=== PATIENT | female | born 1950 | race Caucasian/White ===

== ENCOUNTER 2016-10-13 13:55 | Emergency (ER) | payer MEDICARE, OTHER ==
[2016-10-13 11:50] LABS: BASOPHILS 0.4 %; BASOPHILS ABSOLUTE 0.04 10/3/uL (0.0-0.16); EOSINOPHILS 0.4 %; EOSINOPHILS ABSOLUTE 0.04 10/3/uL (0.0-0.53); ER CBC TAT 0 Hrs 05 Mins; HEMATOCRIT 35.5 % (36.0-48.0); HEMOGLOBIN 10.9 g/dL (12.0-16.0); IMMATURE GRANULOCYTES 0.2 %; IMMATURE GRANULOCYTES ABSOLUTE 0.02 10/3/uL (0.0-0.11); LYMPHOCYTES 33.9 %; LYMPHOCYTES ABSOLUTE 3.37 10/3/uL (0.67-4.30); MANUAL DIFF NO %; MEAN CORPUS HGB CONC 30.7 g/dL (32.0-36.0); MEAN CORPUSCULAR HEMOGLOB 26.4 pg (26.0-34.0); MEAN PLATELET VOLUME 10.1 fL (9.2-13.0); MONOCYTES 9.5 %; MONOCYTES ABSOLUTE 0.94 10/3/uL (0.21-1.20); NEUTROPHILS 55.6 %; NEUTROPHILS ABSOLUTE 5.52 10/3/uL (2.02-8.40); PLATELET COUNT 264 10/3/uL (150-400); RBC DISTRIBUTION WIDTH 16.9 % (12.0-16.0); RED CELL COUNT 4.13 10/6/uL (4.0-5.6); WHITE BLOOD CELLS 9.9 10/3/uL (4.5-10.5)
[2016-10-13 11:57] LABS: INTERNATIONAL NORMAL RATI 1.2 UNITS (-)
[2016-10-13 11:59] LABS: PROTIME (NOT ORD) 15.1 SEC (12.0-14.5)
[~2016-10-13 13:55] MED LIST: ALTA5 PO; ALTACE10 MG PO; ASA5GR PO; ASABAYER PO; BIOTIN5 MG PO; CELEXA20 PO; CO Q-10100 MG PO; COQ-1010 MG PO; COREG12 PO; COREG25 PO; FOLIC PO; GLUCOPHAGE1000 MG PO; GLUCOTROL5 PO; GLUCXL5 PO; IMDUR30 PO; LAM250 PO; LIPITOR40 PO; NITROSTAT0.4 MG SL; PCET PO; PENTAZOCINE PO; PLAVIX PO; PR25 PO; PREV15 PO; RAN500 PO; REQUIP2 PO; SEV VITAMINS PO; TOPAMAX200 MG PO; TRILIPIX135 MG PO; ZETIA PO; ZOL50 PO; [UNRECOGNIZED DRUG - CODE] PO; [UNRECOGNIZED DRUG - OTHER] PO
[2016-11-22] MEDS ORDERED: NEUR100 PO (13:23)
[2016-11-22] MEDS ORDERED: INTEGRA PLUS C1 EACH PO (13:24)
[2016-12-06] MEDS ORDERED: REQUIP25 PO (09:20)
[2016-12-06] MEDS ORDERED: [UNRECOGNIZED DRUG - CODE] PO (09:20)
[2016-12-06] MEDS ORDERED: IMDUR30 PO (09:21)
[2016-12-06] MEDS ORDERED: REQUIP2 PO (10:31)
== END 2016-10-13 14:25 | disposition home or self-care (01) ==
LOC: ER 13:55
PROVIDERS: Emergency Medicine
DX: L76.22 Postprocedural hemorrhage of skin and subcutaneous tissue following other procedure (principal); Y83.8 Other surgical procedures as the cause of abnormal reaction of the patient, or of later complication, without mention of misadventure at the time of the procedure
CPT/HCPCS: 85025; 85610; 99284

== ENCOUNTER 2016-11-23 08:13 | Day surgery (SDC) | payer MEDICARE, OTHER ==
--- NOTE | ~2016-11-23 | OP ---
Record Of Operation [facility] [address] [place]. [address] NAME: EDIS CERVANTES : 52 STATUS : [facility]#: [id number] AGE: 66 ADM/REG DATE : 11/23/16 MR#: [id number] REPORT SERV DATE: 11/24/16 DICTATED BY: TERESA NOLAND DATE: 11/24/16 REPORT STATUS : Draft TRANSCRIBED BY: MODDelfina DATE: 11/24/16 DATE OF PROCEDURE: 11/23/2016 PREOPERATIVE DIAGNOSIS: Critical limb ischemia, left lower extremity with ischemic rest pain with history of multiple failed endovascular and surgical revascularization procedures. POSTOPERATIVE DIAGNOSIS: Critical limb ischemia, left lower extremity with ischemic rest pain with history of multiple failed endovascular and surgical revascularization procedures. PROCEDURE: 1. Ultrasound-guided percutaneous access, right common femoral artery. 2. Abdominal aortogram. 3. Left leg arteriogram with catheter placement in the below-knee popliteal artery from the right femoral access. SURGEON: Teresa Noland M.D. ANESTHESIA: Local with MAC. ESTIMATED BLOOD LOSS: 5 mL. CONTRAST: 40 mL. IV FLUIDS: 300 mL. COMPLICATIONS: None. INDICATION: Ms Cervantes is a pleasant 66-year-old female, who has had multiple endovascular and surgical revascularization procedures to the left leg by another surgeon. She has had at least two failed bypass procedures in the left leg. She has been recommended for amputation. I was asked to give a second opinion, and as a result, she is brought for arteriogram today. DETAILS OF PROCEDURE: After informed consent was obtained, the patient was brought to the endovascular suite and placed in supine position. After administration of IV sedation, she was prepped and draped in the usual sterile fashion. A time-out was performed. I commenced the procedure with ultrasound-guided percutaneous access to the right common femoral artery. This was done after anesthetizing the right groin with local anesthetic. Permanent image of the artery documenting patency was saved and stored in the patient's chart. I accessed the micropuncture needle, passed a micropuncture wire, confirmed intra-arterial under fluoroscopy. I then upsized to a 5-Estonian sheath over a Bentson wire. I advanced the Bentson wire and [place] flush catheter into the abdominal aorta. The abdominal aortogram was performed which showed the infrarenal aorta to be patent. There was moderate to severe atherosclerotic disease, but no flow-limiting stenosis. Single renal arteries were patent bilaterally with no stenosis. Common iliacs were diseased bilaterally, but again have no flow limiting stenosis. Internal and external iliac arteries were patent bilaterally. Record Of Operation [facility] [address] [place]. [address] NAME: EDIS CERVANTES : 52 STATUS : [facility] PAT#: [id number] AGE: 66 ADM/REG DATE : 11/23/16 MR#: [id number] REPORT SERV DATE: 11/24/16 DICTATED BY: TERESA NOLAND DATE: 11/24/16 REPORT STATUS : Draft TRANSCRIBED BY: MODL DATE: 11/24/16 There are multiple stents in place in the left external iliac artery that extend into the left common femoral artery. These were patent with no stenosis. Next, I pulled the flush catheter down to the bifurcation and flexed it over the contralateral iliac with a Glidewire. I advanced the flush catheter over the bifurcation with the Glidewire. I then performed left leg arteriogram. This showed the common femoral and deep femoral arteries to be patent with no stenosis. The [place] SFA has stents that extend throughout the SFA all the way through the popliteal artery to the tibial plateau. These stents were obviously all occluded. There is evidence of at least two ring PTFE bypass grafts, both of which were occluded. There was a stent in one of the bypassed graft below the knee which is deformed and occluded. There is no reconstitution of any significant caliber tibial vessel distally although there are some collaterals that light up with contrast. After that, I replaced the Glidewire. We administered 3000 units of IV heparin. I exchanged a 511 sheath for a 545 sheath over the bifurcation. I was able to engage one of the bypass grafts and navigated the catheter all the way down to the distal anastomosis and was presumed to be the tibioperoneal trunk. Even advancing through this occluded bypass distally, I still could not get any significant caliber vessel below the knee that would even be plausible bypass target. Seeing no opportunity for meaningful intervention, wires and catheters were removed. Right femoral artery arteriogram was performed which showed the puncture site in the proximal common femoral artery. Exoseal closure device was deployed for hemostasis. The patient tolerated the procedure well with no complications. I was present for this entire case as dictated. Unfortunately, she does not appear to have any meaningful revascularization options for the left leg and her only option is now amputation. ARCENIO/TRINA Teresa Noland M.D. / [id number] CC: Gina Bunch M.D.
[~2016-11-23 08:13] MED LIST changes: +INTEGRA PLUS C1 EACH PO; +NEUR100 PO
[2016-12-06] MEDS ORDERED: REQUIP25 PO (09:20)
[2016-12-06] MEDS ORDERED: [UNRECOGNIZED DRUG - CODE] PO (09:20)
[2016-12-06] MEDS ORDERED: IMDUR30 PO (09:21)
[2016-12-06] MEDS ORDERED: REQUIP2 PO (10:31)
== END 2016-11-23 16:45 | disposition home or self-care (01) ==
LOC: SDC 08:13 → SSU1 14:35
DX: M62.262 Nontraumatic ischemic infarction of muscle, left lower leg (principal); I99.8 Other disorder of circulatory system; I25.10 Atherosclerotic heart disease of native coronary artery without angina pectoris; I10 Essential (primary) hypertension; E11.9 Type 2 diabetes mellitus without complications; I73.9 Peripheral vascular disease, unspecified; E78.5 Hyperlipidemia, unspecified; Z87.891 Personal history of nicotine dependence; Z88.2 Allergy status to sulfonamides; Z88.1 Allergy status to other antibiotic agents; Z79.82 Long term (current) use of aspirin; Z79.899 Other long term (current) drug therapy; Z95.1 Presence of aortocoronary bypass graft
CPT/HCPCS: 36247; 75625; 75710; 76937; 82962; A9270-GY; C1760; C1769; C1887; C1894; J1200; J1720; J2250; J3010; Q9966

== ENCOUNTER 2016-12-10 17:22 | Inpatient (IN) | payer MEDICARE, OTHER ==
--- NOTE | ~2016-12-10 | OP ---
Record Of Operation [facility] [address] [place]. [address] NAME: EDIS CERVANTES : 52 STATUS : DIS IN PAT#: [id number] AGE: 66 ADM/REG DATE : 12/10/16 MR#: [id number] REPORT SERV DATE: 12/25/16 DICTATED BY: BOOM VILLEGAS DATE: 12/24/16 REPORT STATUS : Draft TRANSCRIBED BY: TRINA DATE: 12/24/16 DATE OF PROCEDURE: 12/13/2016 PREPROCEDURE DIAGNOSIS: Gangrene of left foot, unreconstructable vascular disease. POSTOPERATIVE DIAGNOSIS: Gangrene of left foot, unreconstructable vascular disease. PROCEDURE PERFORMED: Left above knee amputation. SURGEON: Boom Villegas M.D. ANESTHESIA: General. COMPLICATIONS: None. INDICATION FOR PROCEDURE: Secondary to this very pleasant 66-year-old female who is status post multiple interventions for limb salvage, however, has no additional options for vascular reconstruction. Recommendations were made for observation, however, she failed observation and proceeded with rest pain and gangrene of the left foot. Recommendations were made for left above-knee amputation. Consent was given. DETAILS OF PROCEDURE: The patient was brought to the operating room, placed in supine position, prepped and draped in a routine sterile fashion with attention to the left leg. A curvilinear incision was then placed over the distal aspect of the left thigh and this incision then proceeded down through the skin and subcutaneous tissues with electrocautery, all the way to the femur. The femur was then encircled and then divided by Gigli saw. The posterior flap was then created. The neurovascular bundle was ligated and divided individually and then specimen was passed off the field. All areas of bleeding were then controlled with cautery and suture ligature. The bone was then rasped smooth. The entire wound was then cleansed with saline and then a myopexy was then performed with a six-point suture. This was performed x2. Next, the fascia was then closed with interrupted Vicryl stitch and the skin was then closed with jorge. Standard dressings were applied. The patient tolerated the procedure well. DAMIEN/TRINA Boom Villegas M.D. / [id number] CC: Gina Langley M.D.
--- NOTE | ~2016-12-10 | DS ---
Discharge Summary [facility] [address] [place]. [address] NAME: EDIS CERVANTES : 52 STATUS : DIS IN PAT#: [id number] AGE: 66 ADM/REG DATE : 12/10/16 MR#: [id number] REPORT SERV DATE: 03/08/17 DICTATED BY: BOOM VILLEGAS DATE: 03/04/17 REPORT STATUS : Draft TRANSCRIBED BY: MODL DATE: 03/04/17 ADMISSION DATE: 12/10/2016 DISCHARGE DATE: 12/17/2016 ADMITTING DIAGNOSIS: Was a left AKA. She was admitted to [facility] for gangrene of the left foot where Dr. Villegas amputated the left extremity above the knee. Suri were placed. Dressing was clean, dry, and intact. PLAN: For Ms. Cervantes is for her to follow up in 6 weeks to have the suri removed from her left AKA. We also have consulted home health to come out to the house to assist Ms. Cervantes with her ADLs. ELIZABETH/TRINA Concetta Arguello, TRIAL MGR Boom Villegas M.D. / [id number] CC: Gina Langley M.D.
[~2016-12-10 17:22] MED LIST changes: +REQUIP25 PO
[2016-12-10 17:27] LABS: BASOPHILS 0.5 %; BASOPHILS ABSOLUTE 0.06 10/3/uL (0.0-0.16); EOSINOPHILS 4.3 %; EOSINOPHILS ABSOLUTE 0.47 10/3/uL (0.0-0.53); HEMATOCRIT 37.9 % (36.0-48.0); IMMATURE GRANULOCYTES 0.4 %; IMMATURE GRANULOCYTES ABSOLUTE 0.04 10/3/uL (0.0-0.11); LYMPHOCYTES 21.4 %; LYMPHOCYTES ABSOLUTE 2.36 10/3/uL (0.67-4.30); MEAN CORPUS HGB CONC 31.7 g/dL (32.0-36.0); MEAN CORPUSCULAR HEMOGLOB 25.9 pg (26.0-34.0); MEAN CORPUSCULAR VOLUME 81.9 fL (80-100); MEAN PLATELET VOLUME 9.7 fL (9.2-13.0); MONOCYTES 6.6 %; MONOCYTES ABSOLUTE 0.73 10/3/uL (0.21-1.20); NEUTROPHILS 66.8 %; NEUTROPHILS ABSOLUTE 7.39 10/3/uL (2.02-8.40); PLATELET COUNT 304 10/3/uL (150-400); RBC DISTRIBUTION WIDTH 15.8 % (12.0-16.0); RED CELL COUNT 4.63 10/6/uL (4.0-5.6)
[2016-12-10 17:28] LABS: MANUAL DIFF NO %; WHITE BLOOD CELLS 11.1 10/3/uL (4.5-10.5)
[2016-12-10 17:36] LABS: PROTIME (NOT ORD) 13.2 SEC (12.0-14.5)
[2016-12-10 17:44] LABS: BUN (BLOOD UREA NITROGEN) 20 MG/DL (6-23); CALCIUM, SERUM 9.4 MG/DL (8.5-10.4); CHEST PAIN PROFILE TAT 0 Hrs 20 Mins; CHLORIDE, SERUM 106 MMOL/L (96-112); CREATININE 0.83 MG/DL (0.55-1.02); GFR AFRICAN AMERICAN 86 ML/MIN (>=60); GFR NON AFRICAN AMERICAN 74 ML/MIN (>=60); POTASSIUM, SERUM 3.9 MMOL/L (3.5-5.3); SODIUM, SERUM 139 MMOL/L (135-148); TROPONIN I <0.02 NG/ML (<0.05)
[2016-12-10 17:45] LABS: CO2 (CARBON DIOXIDE) 27 MMOL/L (24-34); GLUCOSE, SERUM 243 MG/DL (60-99)
[2016-12-10] MEDS ORDERED: ZOL50 PO (18:49)
[2016-12-10] MEDS ORDERED: SENTAB PO (18:54)
== END 2016-12-17 16:05 | DRG 241 ==
LOC: ER 17:22 → 2SO 18:57
PROVIDERS: Emergency Medicine; Specialist
PROC: 4A023N6 Measurement of Cardiac Sampling and Pressure, Right Heart, Percutaneous Approach (ICD-10-PCS; 2016-12-10)
PROC: B206YZZ Plain Radiography of Right and Left Heart using Other Contrast (ICD-10-PCS; 2016-12-10)
PROC: 0Y6D0Z3 Detachment at Left Upper Leg, Low, Open Approach (ICD-10-PCS; principal; 2016-12-13 15:45)
DX: I75.022 Atheroembolism of left lower extremity (principal); E11.42 Type 2 diabetes mellitus with diabetic polyneuropathy; E11.51 Type 2 diabetes mellitus with diabetic peripheral angiopathy without gangrene; I70.222 Atherosclerosis of native arteries of extremities with rest pain, left leg; I10 Essential (primary) hypertension; I25.10 Atherosclerotic heart disease of native coronary artery without angina pectoris; D64.9 Anemia, unspecified; K21.9 Gastro-esophageal reflux disease without esophagitis; G25.81 Restless legs syndrome; G89.29 Other chronic pain; M54.9 Dorsalgia, unspecified; Z95.1 Presence of aortocoronary bypass graft; Z86.73 Personal history of transient ischemic attack (TIA), and cerebral infarction without residual deficits; Z79.4 Long term (current) use of insulin; Z88.2 Allergy status to sulfonamides; Z88.5 Allergy status to narcotic agent; Z88.8 Allergy status to other drugs, medicaments and biological substances; Z91.041 Radiographic dye allergy status; I65.29 Occlusion and stenosis of unspecified carotid artery; E78.5 Hyperlipidemia, unspecified; I73.9 Peripheral vascular disease, unspecified; Z87.891 Personal history of nicotine dependence; Z88.1 Allergy status to other antibiotic agents; Z79.51 Long term (current) use of inhaled steroids; Z79.82 Long term (current) use of aspirin; Z79.02 Long term (current) use of antithrombotics/antiplatelets; Z79.899 Other long term (current) drug therapy
CPT/HCPCS: 36415; 71010; 80048; 80061; 82962; 83735; 84484; 85025; 85610; 85730; 86850; 86900; 86901; 86920; 88307; 93005; 93459; 93926; 96365; 96375; 97161-GP; 97530-GP; 99152; 99153; 99291; A9270-GY; C1769; G8978-CL-GP; G8979-CL-GP; G8980-CK-GP; J0360; J0690; J1170; J2250; J2270; J2405; J3010; J3360; Q9967

== ENCOUNTER 2017-01-04 17:15 | Inpatient (IN) | payer MEDICARE, OTHER ==
--- NOTE | ~2017-01-04 | OP ---
Record Of Operation [facility] [address] [place]. [address] NAME: EDIS CERVANTES : 52 STATUS : ADM IN PAT#: [id number] AGE: 66 ADM/REG DATE : 01/04/17 MR#: [id number] REPORT SERV DATE: 01/06/17 DICTATED BY: RUY PANTOJA DATE: 01/06/17 REPORT STATUS : Draft TRANSCRIBED BY: MODL DATE: 01/06/17 DATE OF PROCEDURE: 01/06/2017 SURGEON: Ruy Pantoja DO. PREOPERATIVE DIAGNOSIS: Ischemic left lower extremity above-knee amputation with thrombosed external iliac and common femoral arteries. POSTOPERATIVE DIAGNOSIS: Ischemic left lower extremity above-knee amputation with thrombosed external iliac and common femoral arteries. PROCEDURES: 1. Ultrasound-guided access of right common femoral artery. 2. Aortogram, left lower extremity runoff with radiographic interpretation. 3. Percutaneous thrombectomy of the left external iliac and left common femoral artery. 4. Angioplasty and stent to the left common femoral artery and profunda femoris artery with drug-coated balloon and 6 mm x 40 mm EV3 self-expanding stent and 8 mm x 40 mm EV3 self-expanding stent. INDICATIONS FOR PROCEDURE: This is a very pleasant 66-year-old female who previously underwent above-knee amputation on the 12/10/2016. She was found to have left groin pain, presented to the emergency department without a left femoral pulse. Duplex performed demonstrated occluded left external iliac and common femoral arteries. This was thought to be an acute occlusion. Recommendation was made for arteriogram and possible intervention. This was done to give the stump a chance to heel. The procedures, benefits, alternatives, and indications were discussed extensively with the patient. All questions were answered. Consent was signed and placed in the chart. DESCRIPTION OF PROCEDURE: On 01/06/2017, the patient was taken to the interventional suite and placed in supine position on the operating table. After the uneventful induction of monitored conscious analgesia, bilateral groins were prepped and draped in the usual sterile fashion. Time out was performed to the identify the patient and proposed procedure to be performed. After the time out was performed, ultrasound was used to interrogate the right common femoral artery. The patient had a previous bypass in the right common femoral artery and access was achieved under direct visualization with ultrasound guidance just above the access into the common femoral. Micropuncture needle was advanced under direct visualization of the ultrasound guidance and micropuncture wire was advanced. Arteriogram was performed at the access site with a micropuncture sheath, which demonstrated to be within the common femoral artery. The artery will be widely patent, however, somewhat small. The patient was systemically heparinized at this juncture. Micropuncture sheath was exchanged for a 6-Albanian sheath. Catheter was introduced into the aorta above the level of renal artery and aortogram was performed which demonstrated patent aorta, patent bilateral renal arteries and patent bilateral common iliac arteries. There was a previously placed stent in the left external iliac which demonstrated acute thrombus with reconstitution at the level of the profunda femoris. Wire and catheter technique was used to select at the left common and external iliac arterial system. Catheter wire was advanced down through the Record Of Operation [address] [place]. [address] NAME: EDIS CERVANTES : 52 STATUS : ADM IN PAT#: [id number] AGE: 66 ADM/REG DATE : 01/04/17 MR#: [id number] REPORT SERV DATE: 01/06/17 DICTATED BY: RUY PANTOJA DATE: 01/06/17 REPORT STATUS : Draft TRANSCRIBED BY: TRINA DATE: 01/06/17 thrombosed external iliac artery system. Wire and catheter technique was used to select out the profunda femoris. Arteriogram demonstrated flow within the profunda femoris. The short 6-Albanian sheath was exchanged for a 6-Albanian 45 cm sheath. AngioJet percutaneous thrombectomy device was brought into the field and 20 mg of tPA were delivered into the thrombosed area with a power pulse spray delivered from the AngioJet machine. This was allowed to percolate for approximately 20 minutes. After 20 minutes had passed, percutaneous thrombectomy was performed with the AngioJet machine. This demonstrated significant improvement in the flow within the external iliac and common femoral system. There were still some residual thrombus, which appeared chronic in the common femoral system and high-grade stenosis at the origin of profunda femoris. A 6 mm x 40 mm balloon was brought into field and used to angioplasty of the common femoral artery. This demonstrated residual hemodynamically significant stenosis and/or chronic thrombus within the common femoral artery. A 4 mm x 40 mm OrderGroovetronic drug-coated balloon was brought into the field and used to angioplasty the origin of the profunda femoris extending into the common femoral artery. This angiographically gave a fair result. However, there were still hemodynamically significant stenosis at the origin of the profunda femoris. Multiple attempts were made to break up the clot within the common femoral artery, however, it was decided that this likely needed stent with stent extending into the origin of the profunda femoris. This was done to save outflow into the profunda femoris in order to allow for wound healing in the above-knee amputation stump. An 8 mm x 40 mm EV3 self-expanding stent was delivered in the common femoral artery overlapping from the previous common femoral artery stent. Distal to this, a 6 mm x 40 mm stent was delivered in the profunda femoris artery extending into the common femoral artery and overlapping with the previous common femoral artery with the just placed common femoral artery stent. This was angioplastied along its course of a 5 mm balloon. Completion arteriogram demonstrated excellent flow to the system with excellent flow down the profunda femoris. There was no evidence of residual hemodynamically significant stenosis. At this juncture, all wires, catheters, and sheaths were removed. Pressure was held over the access site for 15 minutes, and hemostasis was achieved. The thigh was warm at the conclusion of the operation. There were no apparent intraoperative complications, and the patient tolerated the procedure well. All counts were correct at the conclusion of the operation. ELENA/GIOL Ruy Pantoja DO / [id number] CC: Saul Cross M.D.
--- NOTE | ~2017-01-04 | CN ---
Consultation Report [facility] [address] [place]. [address] NAME: EDIS CERVANTES : 52 STATUS : ADM IN PAT#: [id number] AGE: 66 ADM/REG DATE : 01/04/17 MR#: [id number] REPORT SERV DATE: 01/09/17 DICTATED BY: DATE: REPORT STATUS : Draft TRANSCRIBED BY: MODL DATE: 01/09/17 NEUROLOGY CONSULTATION. DATE OF CONSULTATION: 01/04/2017 REASON FOR CONSULT: Encephalopathy, abnormal MRI. HISTORY OF PRESENT ILLNESS: This is a 66-year-old female who presented to [facility] on 01/04/2017 secondary to suspected Neurontin toxicity. The patient was noted to have recent zrhxl-evn-lakx amputation in the left lower extremity, was subsequently discharged to rehab, was doing well. The patient at rehab, apparently had her Neurontin adjusted and was found to be encephalopathic and drowsy. The patient was suspected to take a way higher dose of Neurontin compared to before and was admitted to the Critical Care Service for further evaluation and monitoring. The patient's condition subsequently stabilized, and the patient was sent to the floor. Prior to hospitalization, no recent fever, chills, nausea, vomiting, chest pain, or shortness of breath was otherwise reported. The patient, after ICU admission, was noted to have increasing lethargy as well as drowsiness with dysarthria noted by family members for the past two days. The patient's symptoms today have improved compared to before, but according to the daughter, she is not back to baseline. The patient was noted to have no significant focal weakness or numbness noticed by the patient or the family members. Prior to consultation, the patient was noted to have elevated ammonia level on 01/08/2017 and lactulose was initiated. PAST MEDICAL HISTORY: Significant for sknem-zti-cphx amputation as well as coronary artery disease, coronary artery bypass surgery, hypertension, hypercholesterolemia, peripheral vascular disease as well as previous tobacco usage. SOCIAL HISTORY: The patient does have previous tobacco usage. No alcohol or illicit drug usage was noted. FAMILY HISTORY: No significant family history was reported by the patient. REVIEW OF SYSTEMS: Negative except for those mentioned in the HPI. MEDICATIONS: At the time of evaluation, the patient was noted to have current medications consisting of ramipril, aspirin, Coreg, Imdur, lactulose, Lipitor, NovoLog, Plavix, Protonix, Requip, Senokot, multivitamin, Topamax, Zoloft, and Zosyn. PHYSICAL EXAMINATION: VITAL SIGNS: At the time of evaluation, the patient was noted to have vital signs with T-max of 98.7, heart rate of 64 to 89, respirations of 16 to 20, and blood pressure of 109 to 176 over 57 to 76. GENERAL: The patient is well developed, well nourished, in no acute distress. Consultation Report [facility] [id number] [place]. [address] NAME: EDIS CERVANTES : 52 STATUS : ADM IN PAT#: [id number] AGE: 66 ADM/REG DATE : 01/04/17 MR#: [id number] REPORT SERV DATE: 01/09/17 DICTATED BY: DATE: REPORT STATUS : Draft TRANSCRIBED BY: MODDelfina DATE: 01/09/17 CARDIOVASCULAR: Examination is regular rate and rhythm. No carotid bruits were otherwise auscultated. PULMONARY: Clear to auscultation bilaterally. NEUROLOGICAL: Generally, the patient is alert and oriented to person, place, year, and month. Follows simple and 2-step commands. Minimal dysarthria was noted. No significant aphasia was appreciated. The patient was able to answer questions appropriately at the time of evaluation. During evaluation, this patient had difficulty with recall. Cranial nerves II through XII, pupils equal, round, and reactive to light. Extraocular eye movement was noted to be intact. Intact peripheral vision. Symmetrical facial expression and sensation. Midline tongue. Normal palatal movement. Mild decreased hearing in bilateral ears. 5/5 bilateral upper and lower extremity strength with the patient noted to have left AKA. The patient was noted to have symmetrical bilateral upper extremities with the patient noted to have intact sensation in the right lower extremity. Deep tendon reflex was diminished throughout. Gait was not evaluated secondary to bolmr-xgg-yacy amputation. LABORATORY STUDIES: White blood cell count of 6.2, hemoglobin of 7.9, hematocrit of 26.4, and platelet count of 217. Chemistry panel; sodium 145, potassium 3.6, chloride 117, bicarb 20, BUN of 11, creatinine 0.65, glucose of 162, calcium of 9.0, magnesium of 1.7. Serum ammonia level was noted to be 62 on 01/08/2017 and 33 today. The patient does have CT scan of the brain which demonstrated no acute process. The patient was noted to have MRI of the brain which demonstrated bilateral white matter gliosis secondary to small-vessel disease as well as abnormal signal in the central pontine area, concerning for possible reversible ischemic changes secondary to hypertension versus chronic gliosis versus central pontine myelinolysis. The patient does not have any history of hyponatremia during the current hospitalization. IMPRESSION: Encephalopathy, improving. The patient at the time of evaluation was alert and oriented x3. MRI of the brain otherwise demonstrated pontine abnormality, but no clear acute changes. Question of lesions on the MRI or relevance to patient's confusion. The patient does have improved ammonia level today. We will continue to monitor ammonia level as well as check serum TSH and free T4 level. We will avoid sedation. If the patient does not have any other significant improvement of mental status, we will obtain EEG study. RECOMMENDATIONS: 1. We will check ammonia level, TSH, and free-T4 level. 2. We will obtain EEG if there is no significant improvement in mental status. 3. We will recommend avoiding sedation. [facility]/TRINA David Higgins MD Consultation Report [address] [address] NAME: EDIS CERVANTES : 52 STATUS : ADM IN PAT#: [id number] AGE: 66 ADM/REG DATE : 01/04/17 MR#: [id number] REPORT SERV DATE: 01/09/17 DICTATED BY: DATE: REPORT STATUS : Draft TRANSCRIBED BY: MODL DATE: 01/09/17 / [id number]
--- NOTE | ~2017-01-04 | HP ---
History And Physical [facility] [id number] [place]. [address] NAME: EDIS CERVANTES : 52 STATUS : ADM IN [facility]#: [id number] AGE: 66 ADM/REG DATE : 01/04/17 MR#: [id number] REPORT SERV DATE: 01/05/17 DICTATED BY: DEBO CROSS DATE: 01/04/17 REPORT STATUS : Draft TRANSCRIBED BY: MODDelfina DATE: 01/04/17 DATE OF ADMISSION: 01/04/2017 REASON FOR ADMISSION: Hypotension, accidental Neurontin overdose, and recent AKA with acute kidney injury. HISTORY OF PRESENT ILLNESS: Ms. Cervantes is a 66-year-old woman with multiple medical problems, most significantly coronary artery disease with previous coronary artery bypass graft surgery and significant peripheral vascular disease, who recently underwent left AKA on 12/13. She went to inpatient rehab and did reasonably well, but some of her medications were adjusted before she was discharged and some after arrival to the facility and she became less responsive and was found to be hypotensive. She has been very thirsty and feeling dehydrated. She has had no fevers, chills, or night sweats. PAST MEDICAL HISTORY: Prior to this presentation again is significant for coronary artery disease, previous coronary artery bypass graft surgery, hypertension, hypercholesterolemia, peripheral vascular disease with recent AKA. She is a former smoker, having quit eight years ago. No alcohol abuse or illicit drug use. FAMILY HISTORY: Noncontributory to this acute presentation. REVIEW OF SYSTEMS: Review of 10 systems was performed and is positive for what was noted above. PHYSICAL EXAMINATION: GENERAL: She is awake and alert. HEENT: Normocephalic and atraumatic, but her mucous membranes are very dry. NECK: Supple. No lymphadenopathy. No JVD. CHEST: Symmetric with good expansion bilaterally. LUNGS: Clear to auscultation and percussion bilaterally. CARDIOVASCULAR: She has S1 and S2, which are regular in rate and rhythm. ABDOMEN: Benign. EXTREMITIES: She has a left AKA with jorge, but the stump appears warm, not mottled and well perfused. Her right leg is within normal limits and she has no clubbing or cyanosis. ASSESSMENT AND PLAN: Hypotension: She has hypotension, decreased alertness which have improved since arrival with volume resuscitation. It appears that she has had decreased p.o. intake, is dehydrated as evidenced by an initially mildly elevated lactate over 3 that is now down to 1, and she also had a much higher dose of Neurontin than her baseline. With that in mind, we will hold off much of her sedating medications. Continue with aggressive volume resuscitation. Her procalcitonin is normal and there was no obvious evidence of infection, so we have not started her on antibiotics. I have discussed the case with vascular surgery and she will have a PICC line placed in the morning. We appreciate the opportunity to participate in her care. History And Physical [address] [address] NAME: EDIS CERVANTES : 52 STATUS : ADM IN [facility]#: [id number] AGE: 66 ADM/REG DATE : 01/04/17 MR#: [id number] REPORT SERV DATE: 01/05/17 DICTATED BY: DEBO CROSS DATE: 01/04/17 REPORT STATUS : Draft TRANSCRIBED BY: TRINA DATE: 01/04/17 CB/TRINA Debo Cross M.D. / [id number] CC: Gina Hankins M.D.
--- NOTE | ~2017-01-04 | DS ---
Discharge Summary [facility] [address] [place]. [address] NAME: EDIS CERVANTES : 52 STATUS : DIS IN PAT#: [id number] AGE: 66 ADM/REG DATE : 01/04/17 MR#: [id number] REPORT SERV DATE: 02/03/17 DICTATED BY: BOOM VILLEGAS DATE: 02/02/17 REPORT STATUS : Draft TRANSCRIBED BY: MODL DATE: 02/02/17 ADMISSION DATE: 01/04/2017 DISCHARGE DATE: 01/10/2017 Ms. Cervantes was admitted on 01/06/2017 and discharged on 01/10/[address] Ruy Pantoja. 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 Dr. Pantoja took her to surgery to improve the flow to her extremity. This was corrected. She then experienced some episodes of confusion and she was seen by Neurology, found to be dehydrated and anemic. She was transfused. Upon being transfused, she was scheduled to follow up with Dr. Villegas in two to four weeks. The patient informed that if she needed us in the interim, she is to call [facility]. The patient voiced understanding and is in agreement with this treatment plan. DICTATED BY: Concetta Arguello NP DICTATED FOR: Gina Langley/TRINA Concetta Arguello NP Boom Villegas M.D. / [id number] CC: Gina Mcdonald M.D.
--- NOTE | ~2017-01-04 | DS ---
Discharge Summary [facility] [address] [place]. [address] NAME: EDIS CERVANTES : 52 STATUS : DIS IN PAT#: [id number] AGE: 66 ADM/REG DATE : 01/04/17 MR#: [id number] REPORT SERV DATE: 01/10/17 DICTATED BY: MONET SIMENTAL DATE: 01/10/17 REPORT STATUS : Draft TRANSCRIBED BY: MODL DATE: 01/10/17 ADMISSION DATE: 01/04/2017 DISCHARGE DATE: 01/10/2017 FINAL HOSPITAL DIAGNOSES: 1. Hypotension secondary to adverse reaction to Neurontin. 2. Recent AKA with acute kidney injury. 3. CAD. 4. History of hypertension. 5. History of PVD. CONSULTATIONS: Pulmonary Critical Care; vascular Surgery; and Neurology. PROCEDURES: 1. Thrombectomy of left external iliac and left common femoral artery, angioplasty and stent to the left common femoral artery and profunda femoris artery. 2. CT of the brain done on the showing no acute intracranial hemorrhage or other acute change or pathology identified. Mild deep white matter chronic microvascular ischemic changes and probable small subcentimeter subcortical infarct superior left occipital lobe. 3. CT abdomen and pelvis done on the showing a previous vascular intervention but no other significant findings. 4. Repeat CT scan of the brain done on the showing unremarkable noncontrast head CT. No acute intracranial pathology. 5. Lower extremity arterial Doppler done on the showing occlusion of the left common femoral superficial femoral, deep femoral arteries. 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 6. MRI of the brain done on the showing abnormal signal in the central silva. Differential would include reversible ischemic changes secondary to hypertension, chronic gliosis, or central pontine myelinolysis. Mild chronic bilateral white matter gliosis consistent with small vessel disease. No acute cortical infarct or hemorrhage. 7. Abdominal ultrasound done on the showing negative abdominal ultrasound. Liver is sonographically normal with appropriate hepatopetal blood flow in the portal vein. CURRENT PHYSICAL FINDINGS AND HISTORY OF PRESENT ILLNESS: Please see initial dictated H and P by Dr. Cross. In brief, the patient was admitted on the with change in mental status and encephalopathy felt secondary to significantly high Neurontin dose that was given to the patient upon discharge from rehab with subsequent dehydration. Vital signs at the time of admission, blood pressure was 95/27 and 92/33. Subsequent blood pressure has improved and if not, have been abnormally low since. She has been afebrile during her hospital stay. On presentation, her creatinine was 1.14. Subsequent creatinines have been within the normal range. Initial magnesium was slightly low but was replaced. She initially had some mild hypophosphatemia which was replaced. LFTs and lipase were normal on admission through her hospital stay. Troponin was negative. Folate was 26.1, B12 was 583. Thyroid function were normal. The patient had an ammonia of 43 on admission, 45 on discharge. Discharge Summary [facility] [id number] [facility] [place]. [address] NAME: EDIS CERVANTES : 52 STATUS : DIS IN [facility]#: [id number] AGE: 66 ADM/REG DATE : 01/04/17 MR#: [id number] REPORT SERV DATE: 01/10/17 DICTATED BY: MONET SIMENTAL DATE: 01/10/17 REPORT STATUS : Draft TRANSCRIBED BY: TRINA DATE: 01/10/17 Lactate of 3.0 on admission which decreased to 1.5. Initial white count was 15.6; subsequent white counts have all been normal. Initial hemoglobin was 11.5, hemoglobins have been approximately 8 since the . Urinalysis was unremarkable. Blood cultures were negative at four days. Wound culture did grow out a coag-negative staph in a Proteus which she did receive some antibiotics for but this was felt most likely to be a contaminant. HOSPITAL COURSE: The patient was admitted initially to the ICU given her volume depletion and hypotension and confusion. Her Neurontin was held. Vascular was consulted with the findings of the significant vascular occlusion as she did previously have an amputation. She was stabilized in the ICU and then transferred out to the floor to the medical service with vascular following and eventually scheduled for correction of the vascular obstruction which returned flow to that extremity. Postoperatively the patient did have some bleeding and a pressure dressing was recommended. She was given Dilaudid for pain and the remainder of her home medications were re-initiated. Postprocedure, she seemed to have no significant complications; however, she was saturating some of her dressings and serial hemoglobins were followed and pressor dressing was applied and she did receive one unit transfusion on the . I started seeing her at that time. Her blood sugars were followed. Her IV fluids were titrated down. Next, serial hemoglobins were followed. Electrolytes were replaced. PT was consulted and her Genao was removed. She was initiated for discharge planning. With the positive wound culture, Zosyn was started. On the , she was confused. CT brain was ordered which was negative. B12, folate, and ammonia levels were ordered which were slightly high. The patient had no risk factors for liver disease. No previous diagnosis of such. She was given lactulose. Abdominal ultrasound was ordered which has since returned normal blood flow. No portal hypertension. Her Dilaudid was changed. Her Talwin was changed. An MRI was done which showed the nonspecific changes, so Neurology was consulted. They felt her confusion was potentially due to multiple aggravating factors and felt that the MRI changes were not diagnostic. She was titrated off her lactulose which she seemed to tolerate well. Other considerations for her confusion were her medications. She was first titrated off the Dilaudid and then Percocet and placed on hydrocodone. She had recently had a change from Zoloft to Cymbalta, so this was changed. Vascular continued to follow and felt her bleeding was decreasing and would follow her up outpatient. Neurology had no further recommendations and signed off. I did discuss with the patient and her family member in the room that with her CT being normal and her ultrasound being normal with no risk factors. A diagnosis of liver disease with her elevated ammonia level was probably inconsequential and her medications and other potential explanations were more viable for her confusion which have instantly seem to grasp likely improved mostly on decreasing her pain medications for the past 48 hours. She has been answering questions appropriately with appropriate orientation and she has shown no other stigmata of liver disease such as tremors, discoordination, low platelet count, or otherwise therefore, she is discharged today in stable condition with outpatient followup. Vascular wound care per their directions. A new prescription for hydrocodone 5/325 one to two q.4 to 6 h. p.r.n.; aspirin 325; Lipitor 40; Coreg 25 b.i.d.; Plavix 75; Imdur 30; Altace 10; Requip 2 mg b.i.d.; Senokot; Zoloft 50; Topamax 200 b.i.d. which she takes for headaches; Glucophage 1000 b.i.d.; nitroglycerin 0.4; phenergan p.r.n.; Prevacid 15; and Talwin p.r.n. She will not restart her Dilaudid, her Cymbalta, and her Neurontin. She will return for any recurrent symptoms. Discharge Summary [facility] [address] [place]. [address] NAME: EDIS CERVANTES : 52 STATUS : DIS IN PAT#: [id number] AGE: 66 ADM/REG DATE : 01/04/17 MR#: [id number] REPORT SERV DATE: 01/10/17 DICTATED BY: MONET SIMENTAL DATE: 01/10/17 REPORT STATUS : Draft TRANSCRIBED BY: TRINA DATE: 01/10/17 DICTATED BY: Gina Mcdonald/TRINA Monet Simental M.D. / [id number] CC: Gina Mcdonald M.D.
[2017-01-04 15:55] LABS: BASOPHILS 0.2 %; BASOPHILS ABSOLUTE 0.03 10/3/uL (0.0-0.16); EOSINOPHILS 0.4 %; EOSINOPHILS ABSOLUTE 0.07 10/3/uL (0.0-0.53); HEMATOCRIT 36.8 % (36.0-48.0); HEMOGLOBIN 11.5 g/dL (12.0-16.0); IMMATURE GRANULOCYTES 0.3 %; IMMATURE GRANULOCYTES ABSOLUTE 0.04 10/3/uL (0.0-0.11); LYMPHOCYTES 14.3 %; LYMPHOCYTES ABSOLUTE 2.22 10/3/uL (0.67-4.30); MEAN CORPUS HGB CONC 31.3 g/dL (32.0-36.0); MEAN CORPUSCULAR HEMOGLOB 26.2 pg (26.0-34.0); MEAN CORPUSCULAR VOLUME 83.8 fL (80-100); MEAN PLATELET VOLUME 9.8 fL (9.2-13.0); MONOCYTES 7.9 %; MONOCYTES ABSOLUTE 1.23 10/3/uL (0.21-1.20); NEUTROPHILS 76.9 %; NEUTROPHILS ABSOLUTE 11.97 10/3/uL (2.02-8.40); PLATELET COUNT 335 10/3/uL (150-400); RED CELL COUNT 4.39 10/6/uL (4.0-5.6)
[2017-01-04 15:56] LABS: ER CBC TAT 0 Hrs 05 Mins; MANUAL DIFF NO %; WHITE BLOOD CELLS 15.6 10/3/uL (4.5-10.5)
[2017-01-04 16:04] LABS: INTERNATIONAL NORMAL RATI 1.1 UNITS (-); PARTIAL THROMBO TIME 35.7 SEC (22.5-37.2); PROTIME (NOT ORD) 14.4 SEC (12.0-14.5)
[2017-01-04 16:11] LABS: A/G RATIO 0.9 (0.7-1.9); ALBUMIN 3.4 G/DL (3.5-5.0); ALKALINE PHOSPHATASE 84 U/L (45-117); BUN (BLOOD UREA NITROGEN) 20 MG/DL (6-23); CALCIUM, SERUM 9.6 MG/DL (8.5-10.4); CHLORIDE, SERUM 105 MMOL/L (96-112); CO2 (CARBON DIOXIDE) 26 MMOL/L (24-34); CREATININE 1.14 MG/DL (0.55-1.02); GFR AFRICAN AMERICAN 58 ML/MIN (>=60); GFR NON AFRICAN AMERICAN 50 ML/MIN (>=60); GLOBULIN 3.8 G/DL (2.5-4.1); GLUCOSE, SERUM 178 MG/DL (60-99); POTASSIUM, SERUM 4.4 MMOL/L (3.5-5.3); SGOT(AST) 14 U/L (5-40); SGPT(ALT) 20 U/L (5-65); SODIUM, SERUM 139 MMOL/L (135-148); TOTAL BILIRUBIN 0.8 MG/DL (0-1.2); TOTAL PROTEIN 7.2 G/DL (6.0-8.5)
[2017-01-04 16:22] LABS: BE (BASE EXCESS) -6.1 MEQ/L (0 +/- 2.5); HCO3 (ACTUAL BICARBONATE) 18.8 MEQ/L (23-27); INSTRUMENT SERIAL # 8087; OPERATOR ID 18801; PCO2 (CO2 TENSION) 36 MMHG (35-45); PO2 (O2 TENSION) 73 MMHG (79-93); SAMPLE Arterial; pH 7.34 (7.37-7.43)
[2017-01-04 17:11] LABS: TROPONIN I <0.02 NG/ML (<0.05)
[2017-01-04 17:12] LABS: ACETAMINOPHEN LEVEL (TYLENOL) < 2.0 MCG/ML (10.0-20.0); ALCOHOL < 10 MG/DL (0); CPK 51 U/L (0-200); SALICYLATE < 1.7 MG/DL (-)
[~2017-01-04 17:15] MED LIST changes: +SENTAB PO
[2017-01-04 18:03] LABS: PROCALCITONIN 0.18 ng/mL (<0.5)
[2017-01-04] MEDS ORDERED: DIL2TAB PO (18:25)
[2017-01-04] MEDS ORDERED: CYMBALTA60 PO (18:25)
[2017-01-04 18:55] LABS: LACTATE 1.8 MMOL/L (0.3-2.4)
[2017-01-04 19:39] LABS: ASCORBIC ACID (UR NOT ORDER) NEG (NEG); BILIRUBIN, URINE NEGATIVE (NEG); ER URINALYSIS TAT 0 Hrs 25 Mins; KETONE, URINE NEGATIVE (NEG); LEUKOCYTE ESTERASE(NOT OR NEG (NEG); NITRITE (URINE) NEG (NEG); WBC (NOT ORDERED) (RFLEX) 1 (0-5)
[2017-01-04 19:48] LABS: AMPHETAMINES (NOT ORD) NEG (NEG); BARBITURATES (NOT ORDERED NEG (NEG); BENZODIAZEPINES (NOT ORD) NEG (NEG); CANNABINOIDS (THC) NEG (NEG); COCAINE (NOT ORDERED) NEG (NEG); OPIATES POS (NEG); PHENCYCLIDINE(PCP) NEG (NEG); TRICYCLICS NEG (NEG)
[2017-01-05 03:27] LABS: BASOPHILS 0.1 %; BASOPHILS ABSOLUTE 0.01 10/3/uL (0.0-0.16); EOSINOPHILS 1.4 %; EOSINOPHILS ABSOLUTE 0.11 10/3/uL (0.0-0.53); HEMOGLOBIN 9.7 g/dL (12.0-16.0); IMMATURE GRANULOCYTES 0.1 %; IMMATURE GRANULOCYTES ABSOLUTE 0.01 10/3/uL (0.0-0.11); LYMPHOCYTES 28.2 %; LYMPHOCYTES ABSOLUTE 2.21 10/3/uL (0.67-4.30); MEAN CORPUS HGB CONC 31.3 g/dL (32.0-36.0); MEAN CORPUSCULAR HEMOGLOB 26.8 pg (26.0-34.0); MEAN CORPUSCULAR VOLUME 85.6 fL (80-100); MONOCYTES 9.1 %; MONOCYTES ABSOLUTE 0.71 10/3/uL (0.21-1.20); NEUTROPHILS 61.1 %; NEUTROPHILS ABSOLUTE 4.79 10/3/uL (2.02-8.40); RED CELL COUNT 3.62 10/6/uL (4.0-5.6)
[2017-01-05 03:28] LABS: MANUAL DIFF NO %; PLATELET COUNT 170 10/3/uL (150-400); WHITE BLOOD CELLS 7.8 10/3/uL (4.5-10.5)
[2017-01-05 03:43] LABS: CALCIUM, SERUM 8.8 MG/DL (8.5-10.4); CHLORIDE, SERUM 109 MMOL/L (96-112); CO2 (CARBON DIOXIDE) 26 MMOL/L (24-34); CREATININE 0.66 MG/DL (0.55-1.02); GFR AFRICAN AMERICAN 107 ML/MIN (>=60); GFR NON AFRICAN AMERICAN 93 ML/MIN (>=60); SODIUM, SERUM 142 MMOL/L (135-148)
[2017-01-05 03:44] LABS: BUN (BLOOD UREA NITROGEN) 15 MG/DL (6-23); GLUCOSE, SERUM 120 MG/DL (60-99)
[2017-01-05 04:22] LABS: PROCALCITONIN 0.22 ng/mL (<0.5)
[2017-01-06 04:11] LABS: BASOPHILS 0.1 %; BASOPHILS ABSOLUTE 0.01 10/3/uL (0.0-0.16); EOSINOPHILS 0.4 %; EOSINOPHILS ABSOLUTE 0.03 10/3/uL (0.0-0.53); HEMATOCRIT 32.3 % (36.0-48.0); HEMOGLOBIN 10.2 g/dL (12.0-16.0); IMMATURE GRANULOCYTES 0.1 %; IMMATURE GRANULOCYTES ABSOLUTE 0.01 10/3/uL (0.0-0.11); LYMPHOCYTES 9.2 %; LYMPHOCYTES ABSOLUTE 0.68 10/3/uL (0.67-4.30); MEAN CORPUS HGB CONC 31.6 g/dL (32.0-36.0); MEAN CORPUSCULAR HEMOGLOB 26.7 pg (26.0-34.0); MEAN CORPUSCULAR VOLUME 84.6 fL (80-100); MEAN PLATELET VOLUME 10.2 fL (9.2-13.0); MONOCYTES 3.7 %; MONOCYTES ABSOLUTE 0.27 10/3/uL (0.21-1.20); NEUTROPHILS 86.5 %; NEUTROPHILS ABSOLUTE 6.36 10/3/uL (2.02-8.40); PLATELET COUNT 173 10/3/uL (150-400); RBC DISTRIBUTION WIDTH 16.9 % (12.0-16.0); RED CELL COUNT 3.82 10/6/uL (4.0-5.6); WHITE BLOOD CELLS 7.4 10/3/uL (4.5-10.5)
[2017-01-06 04:13] LABS: MANUAL DIFF NO %
[2017-01-06 04:15] LABS: INTERNATIONAL NORMAL RATI 1.1 UNITS (-); PROTIME (NOT ORD) 14.3 SEC (12.0-14.5)
[2017-01-06 04:16] LABS: PARTIAL THROMBO TIME 52.9 SEC (22.5-37.2)
[2017-01-06 04:18] LABS: ALBUMIN 2.9 G/DL (3.5-5.0); CALCIUM, SERUM 9.5 MG/DL (8.5-10.4); CHLORIDE, SERUM 108 MMOL/L (96-112); CREATININE 0.49 MG/DL (0.55-1.02); GFR AFRICAN AMERICAN 118 ML/MIN (>=60); GFR NON AFRICAN AMERICAN 102 ML/MIN (>=60); PHOSPHORUS, SERUM 2.4 MG/DL (2.5-4.5); POTASSIUM, SERUM 3.5 MMOL/L (3.5-5.3); SODIUM, SERUM 139 MMOL/L (135-148)
[2017-01-06 04:20] LABS: BUN (BLOOD UREA NITROGEN) 9 MG/DL (6-23); CO2 (CARBON DIOXIDE) 21 MMOL/L (24-34); GLUCOSE, SERUM 169 MG/DL (60-99)
[2017-01-06 16:59] LABS: BASOPHILS 0.1 %; BASOPHILS ABSOLUTE 0.01 10/3/uL (0.0-0.16); EOSINOPHILS 0.1 %; EOSINOPHILS ABSOLUTE 0.01 10/3/uL (0.0-0.53); HEMATOCRIT 30.3 % (36.0-48.0); HEMOGLOBIN 9.7 g/dL (12.0-16.0); IMMATURE GRANULOCYTES 0.3 %; IMMATURE GRANULOCYTES ABSOLUTE 0.02 10/3/uL (0.0-0.11); LYMPHOCYTES 7.3 %; LYMPHOCYTES ABSOLUTE 0.54 10/3/uL (0.67-4.30); MEAN CORPUSCULAR HEMOGLOB 26.7 pg (26.0-34.0); MEAN CORPUSCULAR VOLUME 83.5 fL (80-100); MEAN PLATELET VOLUME 10.7 fL (9.2-13.0); MONOCYTES 8.7 %; MONOCYTES ABSOLUTE 0.65 10/3/uL (0.21-1.20); NEUTROPHILS 83.5 %; NEUTROPHILS ABSOLUTE 6.21 10/3/uL (2.02-8.40); PLATELET COUNT 182 10/3/uL (150-400); RBC DISTRIBUTION WIDTH 16.9 % (12.0-16.0); RED CELL COUNT 3.63 10/6/uL (4.0-5.6); WHITE BLOOD CELLS 7.4 10/3/uL (4.5-10.5)
[2017-01-06 17:00] LABS: MANUAL DIFF NO %
[2017-01-07 07:07] LABS: BASOPHILS 0 %; EOSINOPHILS 0.2 %; EOSINOPHILS ABSOLUTE 0.01 10/3/uL (0.0-0.53); IMMATURE GRANULOCYTES 0.3 %; IMMATURE GRANULOCYTES ABSOLUTE 0.02 10/3/uL (0.0-0.11); LYMPHOCYTES ABSOLUTE 1.44 10/3/uL (0.67-4.30); MEAN CORPUS HGB CONC 31.7 g/dL (32.0-36.0); MEAN CORPUSCULAR HEMOGLOB 26.4 pg (26.0-34.0); MEAN CORPUSCULAR VOLUME 83.2 fL (80-100); MEAN PLATELET VOLUME 10.5 fL (9.2-13.0); MONOCYTES 9.5 %; MONOCYTES ABSOLUTE 0.62 10/3/uL (0.21-1.20); NEUTROPHILS ABSOLUTE 4.45 10/3/uL (2.02-8.40); PLATELET COUNT 190 10/3/uL (150-400); RBC DISTRIBUTION WIDTH 17.4 % (12.0-16.0); RED CELL COUNT 3.03 10/6/uL (4.0-5.6); WHITE BLOOD CELLS 6.5 10/3/uL (4.5-10.5)
[2017-01-07 07:08] LABS: HEMATOCRIT 25.2 % (36.0-48.0); MANUAL DIFF NO %
[2017-01-07 07:10] LABS: CALCIUM, SERUM 8.7 MG/DL (8.5-10.4); CHLORIDE, SERUM 116 MMOL/L (96-112); CO2 (CARBON DIOXIDE) 23 MMOL/L (24-34); CREATININE 0.67 MG/DL (0.55-1.02); GFR AFRICAN AMERICAN 107 ML/MIN (>=60); GFR NON AFRICAN AMERICAN 92 ML/MIN (>=60); GLUCOSE, SERUM 148 MG/DL (60-99); POTASSIUM, SERUM 3.4 MMOL/L (3.5-5.3)
[2017-01-07 07:12] LABS: BUN (BLOOD UREA NITROGEN) 21 MG/DL (6-23); SODIUM, SERUM 147 MMOL/L (135-148)
[2017-01-07 10:40] LABS: PHOSPHORUS, SERUM 1.7 MG/DL (2.5-4.5)
[2017-01-07 15:47] LABS: BASOPHILS 0.2 %; BASOPHILS ABSOLUTE 0.01 10/3/uL (0.0-0.16); EOSINOPHILS 0.3 %; EOSINOPHILS ABSOLUTE 0.02 10/3/uL (0.0-0.53); HEMATOCRIT 25.3 % (36.0-48.0); HEMOGLOBIN 7.9 g/dL (12.0-16.0); IMMATURE GRANULOCYTES 0.2 %; IMMATURE GRANULOCYTES ABSOLUTE 0.01 10/3/uL (0.0-0.11); LYMPHOCYTES ABSOLUTE 1.35 10/3/uL (0.67-4.30); MEAN CORPUS HGB CONC 31.2 g/dL (32.0-36.0); MEAN CORPUSCULAR HEMOGLOB 26.4 pg (26.0-34.0); MEAN CORPUSCULAR VOLUME 84.6 fL (80-100); MEAN PLATELET VOLUME 10.9 fL (9.2-13.0); MONOCYTES 11.1 %; MONOCYTES ABSOLUTE 0.68 10/3/uL (0.21-1.20); NEUTROPHILS 66.2 %; NEUTROPHILS ABSOLUTE 4.08 10/3/uL (2.02-8.40); PLATELET COUNT 193 10/3/uL (150-400); RBC DISTRIBUTION WIDTH 17.5 % (12.0-16.0); RED CELL COUNT 2.99 10/6/uL (4.0-5.6); WHITE BLOOD CELLS 6.2 10/3/uL (4.5-10.5)
[2017-01-07 15:50] LABS: MANUAL DIFF NO %
[2017-01-07 23:16] LABS: HEMATOCRIT 24.1 % (36.0-48.0); HEMOGLOBIN 7.5 g/dL (12.0-16.0)
[2017-01-08 06:42] LABS: BASOPHILS 0.2 %; BASOPHILS ABSOLUTE 0.01 10/3/uL (0.0-0.16); EOSINOPHILS 2.2 %; EOSINOPHILS ABSOLUTE 0.12 10/3/uL (0.0-0.53); HEMATOCRIT 24.9 % (36.0-48.0); IMMATURE GRANULOCYTES 0.4 %; IMMATURE GRANULOCYTES ABSOLUTE 0.02 10/3/uL (0.0-0.11); LYMPHOCYTES 25.1 %; LYMPHOCYTES ABSOLUTE 1.36 10/3/uL (0.67-4.30); MEAN CORPUS HGB CONC 32.1 g/dL (32.0-36.0); MEAN CORPUSCULAR HEMOGLOB 26.7 pg (26.0-34.0); MEAN PLATELET VOLUME 10.4 fL (9.2-13.0); MONOCYTES 11.6 %; MONOCYTES ABSOLUTE 0.63 10/3/uL (0.21-1.20); NEUTROPHILS 60.5 %; NEUTROPHILS ABSOLUTE 3.28 10/3/uL (2.02-8.40); PLATELET COUNT 193 10/3/uL (150-400); RBC DISTRIBUTION WIDTH 17.5 % (12.0-16.0); WHITE BLOOD CELLS 5.4 10/3/uL (4.5-10.5)
[2017-01-08 06:43] LABS: MANUAL DIFF NO %
[2017-01-08 06:53] LABS: BUN (BLOOD UREA NITROGEN) 19 MG/DL (6-23); CALCIUM, SERUM 8.6 MG/DL (8.5-10.4); CHLORIDE, SERUM 113 MMOL/L (96-112); CO2 (CARBON DIOXIDE) 22 MMOL/L (24-34); CREATININE 0.67 MG/DL (0.55-1.02); GFR AFRICAN AMERICAN 107 ML/MIN (>=60); GFR NON AFRICAN AMERICAN 92 ML/MIN (>=60); GLUCOSE, SERUM 155 MG/DL (60-99); POTASSIUM, SERUM 3.5 MMOL/L (3.5-5.3); SODIUM, SERUM 145 MMOL/L (135-148)
[2017-01-08 06:54] LABS: PHOSPHORUS, SERUM 2.9 MG/DL (2.5-4.5)
[2017-01-08 10:22] LABS: HEMATOCRIT 25.5 % (36.0-48.0); HEMOGLOBIN 8.1 g/dL (12.0-16.0)
[2017-01-08 13:00] LABS: FOLATE 26.1 NG/ML (>5.2)
[2017-01-08 18:20] LABS: A/G RATIO 0.9 (0.7-1.9); ALBUMIN 2.9 G/DL (3.5-5.0); ALKALINE PHOSPHATASE 151 U/L (45-117); BUN (BLOOD UREA NITROGEN) 15 MG/DL (6-23); CALCIUM, SERUM 8.8 MG/DL (8.5-10.4); CHLORIDE, SERUM 114 MMOL/L (96-112); CO2 (CARBON DIOXIDE) 23 MMOL/L (24-34); CREATININE 0.72 MG/DL (0.55-1.02); GFR AFRICAN AMERICAN 102 ML/MIN (>=60); GFR NON AFRICAN AMERICAN 88 ML/MIN (>=60); GLOBULIN 3.2 G/DL (2.5-4.1); GLUCOSE, SERUM 73 MG/DL (60-99); POTASSIUM, SERUM 3.4 MMOL/L (3.5-5.3); SGOT(AST) 21 U/L (5-40); SGPT(ALT) 24 U/L (5-65); SODIUM, SERUM 146 MMOL/L (135-148); TOTAL BILIRUBIN 0.3 MG/DL (0-1.2); TOTAL PROTEIN 6.1 G/DL (6.0-8.5)
[2017-01-09 11:56] LABS: BASOPHILS 0.7 %; BASOPHILS ABSOLUTE 0.04 10/3/uL (0.0-0.16); EOSINOPHILS 3.6 %; EOSINOPHILS ABSOLUTE 0.22 10/3/uL (0.0-0.53); HEMATOCRIT 26.4 % (36.0-48.0); HEMOGLOBIN 7.9 g/dL (12.0-16.0); IMMATURE GRANULOCYTES ABSOLUTE 0.06 10/3/uL (0.0-0.11); LYMPHOCYTES 26.8 %; LYMPHOCYTES ABSOLUTE 1.65 10/3/uL (0.67-4.30); MEAN CORPUSCULAR HEMOGLOB 26.2 pg (26.0-34.0); MEAN PLATELET VOLUME 10.6 fL (9.2-13.0); MONOCYTES 12.2 %; MONOCYTES ABSOLUTE 0.75 10/3/uL (0.21-1.20); NEUTROPHILS 55.7 %; NEUTROPHILS ABSOLUTE 3.43 10/3/uL (2.02-8.40); NUCLEATED RED BLOOD CELLS 0.9 /100WBC (0-0); PLATELET COUNT 217 10/3/uL (150-400); RBC DISTRIBUTION WIDTH 17.7 % (12.0-16.0); RED CELL COUNT 3.02 10/6/uL (4.0-5.6); WHITE BLOOD CELLS 6.2 10/3/uL (4.5-10.5)
[2017-01-09 11:58] LABS: MANUAL DIFF NO %; MEAN CORPUS HGB CONC 29.9 g/dL (32.0-36.0); MEAN CORPUSCULAR VOLUME 87.4 fL (80-100)
[2017-01-09 12:09] LABS: BUN (BLOOD UREA NITROGEN) 11 MG/DL (6-23); CHLORIDE, SERUM 117 MMOL/L (96-112); CO2 (CARBON DIOXIDE) 20 MMOL/L (24-34); CREATININE 0.65 MG/DL (0.55-1.02); GFR AFRICAN AMERICAN 108 ML/MIN (>=60); GFR NON AFRICAN AMERICAN 93 ML/MIN (>=60); GLUCOSE, SERUM 162 MG/DL (60-99); PHOSPHORUS, SERUM 2.8 MG/DL (2.5-4.5); POTASSIUM, SERUM 3.6 MMOL/L (3.5-5.3); SODIUM, SERUM 145 MMOL/L (135-148)
[2017-01-10 06:29] LABS: FREE T4 1.37 NG/DL (0.76-1.46); ULTRASENSITIVE TSH 1.68 MCIU/ML (0.358-3.740)
[2017-01-10] MEDS ORDERED: NORCO1 TA1 PO (16:48)
== END 2017-01-10 17:31 | disposition home or self-care (01) | DRG 907 ==
LOC: ER 17:15 → CCU 19:45 → SDC/OF 01-06 12:06 → 2SO 01-06 14:29
PROVIDERS: Emergency Medicine; Internal Medicine; Internal Medicine Critical Care Medicine; Internal Medicine Pulmonary Disease; Nurse Practitioner Adult Health; Psychiatry & Neurology Neurology; Surgery Vascular Surgery
PROC: 04CJ3ZZ Extirpation of Matter from Left External Iliac Artery, Percutaneous Approach (ICD-10-PCS; principal; 2017-01-06 09:00)
PROC: 047L3D6 (ICD-10-PCS; 2017-01-06 09:00)
PROC: 04CL3ZZ Extirpation of Matter from Left Femoral Artery, Percutaneous Approach (ICD-10-PCS; 2017-01-06 09:00)
PROC: B4101ZZ Fluoroscopy of Abdominal Aorta using Low Osmolar Contrast (ICD-10-PCS; 2017-01-06 09:00)
PROC: 3E05317 Introduction of Other Thrombolytic into Peripheral Artery, Percutaneous Approach (ICD-10-PCS; 2017-01-06 09:00)
DX: T42.6X1A Poisoning by other antiepileptic and sedative-hypnotic drugs, accidental (unintentional), initial encounter (principal); G92 Toxic encephalopathy; N17.9 Acute kidney failure, unspecified; I74.3 Embolism and thrombosis of arteries of the lower extremities; I74.5 Embolism and thrombosis of iliac artery; I95.9 Hypotension, unspecified; E11.51 Type 2 diabetes mellitus with diabetic peripheral angiopathy without gangrene; Z89.612 Acquired absence of left leg above knee; E86.0 Dehydration; E78.5 Hyperlipidemia, unspecified; I25.10 Atherosclerotic heart disease of native coronary artery without angina pectoris; E86.1 Hypovolemia; E83.39 Other disorders of phosphorus metabolism; E78.00 Pure hypercholesterolemia, unspecified; Z79.4 Long term (current) use of insulin; Z95.1 Presence of aortocoronary bypass graft; Z87.891 Personal history of nicotine dependence; Y92.009 Unspecified place in unspecified non-institutional (private) residence as the place of occurrence of the external cause
CPT/HCPCS: 36415; 36600; 37184; 37185; 37226; 70450; 70551; 71010; 73700-50; 74176; 75625; 75710; 76700; 80048; 80053; 80069; 80305; 80307; 81001; 82140; 82550; 82607; 82746; 82805; 82962; 83605; 83690; 83735; 84100; 84132; 84145; 84439; 84443; 84484; 85014; 85018; 85025; 85610; 85730; 86850; 86900; 86901; 86920; 87040; 87070; 87077; 87186; 87205; 87641; 93005; 93926; 96360; 96361; 97110-GP; 97116-GP; 97162-GP; 99291; A9270-GY; C1725; C1757; C1760; C1769; C1876; C1887; C1894; C2623; G8978-CK-GP; G8979-CJ-GP; J0360; J0690; J1170; J1200; J2250; J2370; J2405; J2543; J2930; J2997; J3010; J3475; Q9967